=== PATIENT | female | born 1990 | race Caucasian/White ===

== ENCOUNTER 2020-07-29 06:43 | Emergency (ER) | payer MEDICAID ==
[~2020-07-29] VITALS: Ht 165.1 cm; Wt 69.7 kg
[2020-07-29 06:46] VITALS: BP 148/105
[2020-07-29] MEDS ORDERED: CEPH-585 PO (07:09)
[2020-07-29] MEDS ORDERED: DOXY100C43 PO (07:09)
[2020-07-29] MEDS ORDERED: acetaminophen 325mg tablet PO STA (07:33)
== END 2020-07-29 07:37 | disposition home or self-care (01) ==
LOC: ER 06:44
DX: L02.412 Cutaneous abscess of left axilla (principal); L03.112 Cellulitis of left axilla; M79.622 Pain in left upper arm; M79.645 Pain in left finger(s); F12.90 Cannabis use, unspecified, uncomplicated; Z72.89 Other problems related to lifestyle; Z56.0 Unemployment, unspecified; Z79.2 Long term (current) use of antibiotics
CPT/HCPCS: 99283

== ENCOUNTER 2021-07-01 11:37 | Emergency (ER) | payer MEDICAID ==
[~2021-07-01] VITALS: Ht 165.1 cm; Wt 75.0 kg
[~2021-07-01 11:37] MED LIST: CEPH-585 PO
[2021-07-01 12:09] VITALS: BP 160/96
[2021-07-01] MEDS ORDERED: methadone 10mg tablet PO ONE (12:15)
== END 2021-07-01 12:39 | disposition home or self-care (01) ==
LOC: ER 11:37
DX: F11.90 Opioid use, unspecified, uncomplicated (principal); R11.0 Nausea; F12.90 Cannabis use, unspecified, uncomplicated; Z72.89 Other problems related to lifestyle; Z56.0 Unemployment, unspecified; Z79.2 Long term (current) use of antibiotics
CPT/HCPCS: 99283

== ENCOUNTER 2022-11-02 21:13 | Emergency (ER) | payer MEDICAID ==
[~2022-11-02] VITALS: Ht 165.1 cm; Wt 77.3 kg
[2022-11-02 21:18] VITALS: BP 117/95; PULSE 106; RESP 16; TEMP 98.7; O2SAT 100
== END 2022-11-03 01:28 | disposition left against medical advice (07) ==
LOC: ER 21:14
DX: R10.9 Unspecified abdominal pain (principal); Z53.21 Procedure and treatment not carried out due to patient leaving prior to being seen by health care provider
CPT/HCPCS: 99281

== ENCOUNTER 2023-07-01 09:45 | Outpatient (CLI) | payer MEDICAID | END 2023-07-01 23:59 | disposition home or self-care (01) | LOC: RAD 09:45 | PROVIDERS: ATTEND Nurse Practitioner Obstetrics & Gynecology | DX: O32.1XX0 Maternal care for breech presentation, not applicable or unspecified (principal); Z3A.24 24 weeks gestation of pregnancy | CPT/HCPCS: 76811 ==